=== PATIENT | female | born 1960 | race Caucasian/White ===

== ENCOUNTER → 2020-04-16 | Outpatient (CLI) | payer OTHER ==
--- NOTE | 2020-04-16 14:04 | BD ---
EXAMINATION TYPE: Axial Bone Density DATE OF EXAM: 04/16/2020 COMPARISON: NONE CLINICAL HISTORY: 59 YR OLD FEMALE....ICD-10 CODE: M81.0 OSTEOPOROSIS Height: 62.2 inches Weight: 146 pounds FRAX RISK QUESTIONS: Family History (Parent hip fracture): YES, MOTHER, History of Fracture in Adulthood: YES Secondary Osteoporosis: YES 2. Hyperthyroidism: YES 3. Menopause before 45: YES RISK FACTORS HISTORY OF: HX OF LT FIBULA AN ADULT, RT FOOT FX AN ADULT, AND RT HAND AND TOES AN ADULT Family History of Osteoporosis: SIBLINGS HAVE OSTEOPENIA Diet low in dairy products/other sources of calcium: YES, A BIT, LACTOSE INTOLERANT Postmenopausal woman: YES, AT AGE 34 YRS, TOTAL Hyperparathyroidism: NO Adrenal Insufficiency: NO MEDICATIONS: Thyroid Medications: THYROID CANCER, AT 18 YRS OLD, ON SYNTHROID FOR ABOUT 41 YRS Additional Medications: BP MEDS, CYMBALTA, SEROQUEL, LAMOTRIGINE, TEMAZEPAM, REFLUX MEDS, ADDERALL, LORATIDINE, HX OF RADIATION X3 , CALCIUM AND VIT D, Additional History: BI POLAR, HYPERTENSION, REFLUX, EXAM MEASUREMENTS: Bone mineral densitometry was performed using the [employer] System. Bone mineral density as measured about the Lumbar spine is: ----- L1-L4(G/cm2): 0.891 T Score Values are as follows: ----- L1: -3.0 ----- L2: -3.0 ----- L3: -2.1 ----- L4: -1.9 ----- L1-L4: -2.4 Bone mineral density FIRST DEXA SCAN......BASELINE STUDY Bone mineral density about the R hip (g/cm2): 0.697 Bone mineral density about the L hip (g/cm2): 0.667 T Score values are as follows: -----R Neck: -2.1 -----L Neck: -2.9 -----R Total: -2.5 -----L Total: -2.7 Bone mineral density BASELINE STUDY FRAX%s: THERE IS A 24.4% CHANCE FOR A MAJOR OSTEOPOROTIC FX AND A 6.8% FOR HIP......PROBABILITY FO R A FX IN 10 YRS TIME IMPRESSION: Osteoporosis (T Score less than -2.5). There is increased fracture risk and therapy is usually indicated based on age. Re-Screen 1-2 years. NOTE: T-SCORE=SD OF THE YOUNG ADULT MEAN.
== END | disposition home or self-care (01) ==
LOC: RADBDWWP 12:24
PROVIDERS: ATTEND Internal Medicine
DX: M81.0 Age-related osteoporosis without current pathological fracture (principal)
CPT/HCPCS: 77080